=== PATIENT | female | born 1960 ===

== ENCOUNTER → 2020-10-30 | Outpatient (CLI) | payer BC ==
[~2020-10-30] MED LIST: CARI250T PO; CELE200C PO; CHOL5000 PO; DEXL30CA2 PO; ESCI20TA10 PO; MORP-52 PO; OMEG1CAP23 PO; OXYC-302 PO; OXYC10TA6 PO; TURM500C4 PO; VITA1CAP PO
== END | disposition home or self-care (01) ==
LOC: STAR 13:12
PROVIDERS: ATTEND Neurological Surgery
DX: Z20.822 Contact with and (suspected) exposure to COVID-19 (principal)
CPT/HCPCS: U0003; U0005

== ENCOUNTER 2020-11-03 05:41 | Inpatient (IN) | payer BC, OTHER ==
[~2020-11-03] VITALS: Ht 167.6 cm; Wt 100.1 kg
[2020-11-03 06:04] VITALS: BP 114/74
[2020-11-03] MEDS ORDERED: CHLORHEXIDINE 15 ML UDC ONE (06:10)
[2020-11-03] MEDS ORDERED: BUPIVACAINE/PF 0.5% ONE (06:17)
[2020-11-03] MEDS ORDERED: EPINEPHRINE 1 MG/ML, 1ML ONE (06:17)
[2020-11-03] MEDS ORDERED: VANCOMYCIN 1,000 MG ONE (06:17)
[2020-11-03] MEDS ORDERED: BACITRACIN 50,000 UNIT ONE (06:18)
[2020-11-03] MEDS ORDERED: CHLORHEXIDINE 15 ML UDC PO ONE (06:30)
[2020-11-03] MEDS ORDERED: LACTATED RINGERS 1,000 ML IV SCH (06:30)
[2020-11-03] MEDS ORDERED: MIDAZOLAM 1 MG/ML, 2ML ONE (06:32)
[2020-11-03] MEDS ORDERED: FENTANYL PF 100 MCG/2ML ONE ×3 (06:32→09:08)
[2020-11-03] MEDS ORDERED: DEXAMETHASONE 4 MG/ML, 1ML ONE (06:36)
[2020-11-03] MEDS ORDERED: ONDANSETRON 2MG/ML, 2ML ONE (06:36)
[2020-11-03] MEDS ORDERED: SUCCINYLCHOLINE 20 MG/ML, 10ML ONE (06:36)
[2020-11-03] MEDS ORDERED: CEFAZOLIN 1,000 MG ONE (06:36)
[2020-11-03] MEDS ORDERED: NEOSTIGMINE 1 MG/ML, 10ML ONE (06:36)
[2020-11-03] MEDS ORDERED: PROPOFOL 50 ML ONE (06:36)
[2020-11-03] MEDS ORDERED: PROPOFOL 10 MG/ML, 20ML ONE (06:36)
[2020-11-03] MEDS ORDERED: GLYCOPYRROLATE 0.2MG/1ML, 5ML ONE (06:36)
[2020-11-03] MEDS ORDERED: ROCURONIUM 10MG/ML,5ML ONE (06:36)
[2020-11-03] MEDS ORDERED: LIDOCAINE 1%, 20ML ONE (06:56)
[2020-11-03] MEDS ORDERED: EPHEDRINE 50 MG/ML, 1ML ONE (06:56)
[2020-11-03] MEDS ORDERED: PHENYLEPHRINE 10 MG/ML ONE (06:56)
[2020-11-03] MEDS: FENTANYL PF 100 MCG/2ML IV PRN ×3 (08:35→09:43)
[2020-11-03] MEDS ORDERED: OXYcodone 5 MG/5 ML ORAL.SOL UDC ONE (08:53)
[2020-11-03] MEDS ORDERED: MEPERIDINE/PF 25MG/0.5ML IVPush PRN (09:00)
[2020-11-03] MEDS ORDERED: BISACODYL 10 MG SUPP PR PRN (09:00)
[2020-11-03] MEDS ORDERED: DIPHENHYDRAMINE 50 MG/ML, 1ML IM PRN (09:00)
[2020-11-03] MEDS ORDERED: SENNA/DOCUSATE TABLET PO PRN (09:00)
[2020-11-03] MEDS ORDERED: METHOCARBAMOL 1,000 MG in DEXTROSE 5% 100 ML IV PRN (09:00)
[2020-11-03] MEDS ORDERED: OXYcodone/APAP 5/325MG TABLET PO PRN (09:00)
[2020-11-03] MEDS ORDERED: OXYcodone 5 MG/5 ML ORAL.SOL UDC PO PRN (09:00)
[2020-11-03] MEDS ORDERED: MAGNESIUM HYDROXIDE 8%, 30ML UDC PO PRN (09:00)
[2020-11-03] MEDS ORDERED: HYDROcodone/APAP 5/325 TABLET PO PRN (09:00)
[2020-11-03] MEDS ORDERED: ONDANSETRON 2MG/ML, 2ML IVPush PRN ×2 (09:00)
[2020-11-03] MEDS ORDERED: PROMETHAZINE 25 MG/ML, 1ML IM PRN (09:00)
[2020-11-03] MEDS ORDERED: PROMETHAZINE 25 MG/ML, 1ML IVPush PRN (09:00)
[2020-11-03] MEDS ORDERED: DIPHENHYDRAMINE 50 MG/ML, 1ML IVPush PRN (09:00)
[2020-11-03] MEDS ORDERED: HYDROcodone/APAP 7.5-325MG/15ML UDC PO PRN (09:00)
[2020-11-03] MEDS ORDERED: HYDROmorphone 1 MG/ML, 1ML INJ IVPush PRN (09:00)
[2020-11-03] MEDS ORDERED: METHOCARBAMOL 1,000 MG in DEXTROSE 5% 100 ML IV ONE (09:00)
[2020-11-03] MEDS ORDERED: KETOROLAC 30 MG/1 ML IVPush PRN (09:00)
[2020-11-03] MEDS ORDERED: LABETALOL 5MG/ML, 20ML IVPush PRN (09:00)
[2020-11-03] MEDS ORDERED: DIPHENHYDRAMINE 50 MG CAPSULE PO PRN (09:00)
[2020-11-03] MEDS ORDERED: PHARMACY MAY ADJ FOR RENAL FX MC PRN (09:00)
[2020-11-03 10:05] VITALS: BP 115/74
[2020-11-03] MEDS: D5%-0.9% NACL+KCL 20MEQ 1,000 ML IV SCH ×2 (12:07→20:30)
[2020-11-03] MEDS: SODIUM CHLORIDE FLUSH 10ML SYR IVF SCH ×2 (12:07→20:30)
[2020-11-03] MEDS: ESCITALOPRAM 10MG TABLET PO SCH (12:27)
[2020-11-03] MEDS: DEXLANSOPRAZOLE 30 MG PO SCH (12:27)
[2020-11-03] MEDS: OXYcodone IR 5MG TABLET PO PRN ×3 (12:27→20:34)
[2020-11-03 14:00] VITALS: BP 123/53
[2020-11-03] MEDS: CEFAZOLIN PMX 1GM/50ML 50 ML IVPB SCH ×2 (14:03→22:32)
[2020-11-03] MEDS: morphine SULFATE 10 MG/ML, 1ML IVPush PRN ×2 (14:03→18:32)
[2020-11-03] MEDS: METHOCARBAMOL 750 MG TABLET PO PRN (16:30)
[2020-11-03 18:26] VITALS: BP 131/78
[2020-11-04 00:05] VITALS: BP 105/66
[2020-11-04] MEDS: OXYcodone IR 5MG TABLET PO PRN ×4 (00:27→12:41)
[2020-11-04 03:29] VITALS: BP 109/66
[2020-11-04] MEDS: METHOCARBAMOL 750 MG TABLET PO PRN (05:17)
[2020-11-04] MEDS: D5%-0.9% NACL+KCL 20MEQ 1,000 ML IV SCH (05:49)
[2020-11-04] MEDS: morphine SULFATE 10 MG/ML, 1ML IVPush PRN ×2 (06:19→11:19)
[2020-11-04 08:06] VITALS: BP 98/62
[2020-11-04] MEDS ORDERED: METH-640 PO (08:13)
[2020-11-04] MEDS ORDERED: OXYC5TAB98 PO (08:13)
[2020-11-04] MEDS ORDERED: KETOROLAC 30 MG/1 ML ONE (08:33)
[2020-11-04] MEDS: KETOROLAC 30 MG/1 ML IVPush SCH ×2 (08:36→13:41)
[2020-11-04] MEDS: ESCITALOPRAM 10MG TABLET PO SCH (08:36)
[2020-11-04] MEDS: DEXLANSOPRAZOLE 30 MG PO SCH (09:00)
[2020-11-04] MEDS: SODIUM CHLORIDE FLUSH 10ML SYR IVF SCH (09:00)
== END 2020-11-04 14:24 | disposition home or self-care (01) | DRG 472 ==
LOC: ORIP 05:41 → 4NE 10:04 → DCLOUNGE 11-04 14:19
PROVIDERS: ADMIT Neurological Surgery; ATTEND Neurological Surgery
PROC: 01N10ZZ Release Cervical Nerve, Open Approach (ICD-10-PCS; 2020-11-03)
PROC: 4A11X4G Monitoring of Peripheral Nervous Electrical Activity, Intraoperative, External Approach (ICD-10-PCS; 2020-11-03)
PROC: 0RG1071 Fusion of Cervical Vertebral Joint with Autologous Tissue Substitute, Posterior Approach, Posterior Column, Open Approach (ICD-10-PCS; principal; 2020-11-03 07:00)
DX: M51.16 Intervertebral disc disorders with radiculopathy, lumbar region (principal); M96.0 Pseudarthrosis after fusion or arthrodesis; M48.02 Spinal stenosis, cervical region; M50.120 Mid-cervical disc disorder, unspecified level; M50.30 Other cervical disc degeneration, unspecified cervical region; M53.2X2 Spinal instabilities, cervical region; Z91.040 Latex allergy status
CPT/HCPCS: 72040; J3490; S0020; 95938; 95941; C1713; G0378; J0171; J0690; J1100; J1885; J2250; J2405; J2704; J2710; J3010; J3370; C1762; J0330; J2270; J2370; J2800; J3480; J7120

== ENCOUNTER 2021-01-08 05:42 | Day surgery (SDC) | payer BC, OTHER ==
[~2021-01-08] VITALS: Ht 167.6 cm; Wt 88.6 kg
[~2021-01-08 05:42] MED LIST changes: +METH-640 PO; +OXYC5TAB98 PO
[2021-01-08 06:07] VITALS: BP 112/68
[2021-01-08] MEDS ORDERED: METH-640 PO (06:12)
[2021-01-08] MEDS ORDERED: OXYC1TAB17 PO (06:12)
[2021-01-08] MEDS ORDERED: EPINEPHRINE 1 MG/ML, 1ML ONE (06:28)
[2021-01-08] MEDS ORDERED: VANCOMYCIN 1,000 MG ONE (06:28)
[2021-01-08] MEDS ORDERED: THROMBIN 5,000 UNIT VIAL TP ONE (06:28)
[2021-01-08] MEDS ORDERED: BUPIVACAINE/PF 0.5% ONE (06:28)
[2021-01-08] MEDS ORDERED: CHLORHEXIDINE 15 ML UDC PO ONE (06:30)
[2021-01-08] MEDS ORDERED: LACTATED RINGERS 1,000 ML IV SCH (06:30)
[2021-01-08] MEDS ORDERED: MIDAZOLAM 1 MG/ML, 2ML ONE (06:39)
[2021-01-08] MEDS ORDERED: FENTANYL PF 100 MCG/2ML ONE ×2 (06:39→07:51)
[2021-01-08] MEDS ORDERED: GENTAMICIN 80 MG/2 ML ONE (07:16)
[2021-01-08] MEDS ORDERED: CEFAZOLIN 1,000 MG ONE ×2 (07:16→07:21)
[2021-01-08] MEDS ORDERED: SUCCINYLCHOLINE 20 MG/ML, 10ML ONE (07:21)
[2021-01-08] MEDS ORDERED: PROPOFOL 10 MG/ML, 20ML ONE (07:21)
[2021-01-08] MEDS ORDERED: ONDANSETRON 2MG/ML, 2ML ONE (07:21)
[2021-01-08] MEDS ORDERED: ROCURONIUM 10MG/ML,5ML ONE (07:21)
[2021-01-08] MEDS ORDERED: DEXAMETHASONE 4 MG/ML, 1ML ONE (07:21)
[2021-01-08] MEDS ORDERED: MIDAZOLAM 1 MG/ML, 2ML IV PRN (07:30)
[2021-01-08] MEDS ORDERED: LABETALOL 5MG/ML, 20ML IV PRN (07:30)
[2021-01-08] MEDS ORDERED: MEPERIDINE/PF 25MG/0.5ML IVPush PRN (07:30)
[2021-01-08] MEDS ORDERED: PROMETHAZINE 25 MG/ML, 1ML IVPush PRN (07:30)
[2021-01-08] MEDS ORDERED: HYDROmorphone 1 MG/ML, 1ML INJ IVPush PRN (07:30)
[2021-01-08] MEDS ORDERED: FENTANYL PF 100 MCG/2ML IV PRN (07:30)
[2021-01-08] MEDS ORDERED: ALBUTEROL SULFATE 2.5 MG/3 ML NPPB PRN (07:30)
[2021-01-08] MEDS ORDERED: ACETAMINOPHEN 325 MG TABLET PO PRN (07:30)
[2021-01-08] MEDS ORDERED: OXYcodone 5 MG/5 ML ORAL.SOL UDC PO PRN (07:30)
== END 2021-01-08 09:10 | disposition home or self-care (01) ==
LOC: OUT 05:42
PROVIDERS: ATTEND Neurological Surgery
DX: T81.32XA Disruption of internal operation (surgical) wound, not elsewhere classified, initial encounter (principal); J45.909 Unspecified asthma, uncomplicated; K21.9 Gastro-esophageal reflux disease without esophagitis; G43.909 Migraine, unspecified, not intractable, without status migrainosus; M19.90 Unspecified osteoarthritis, unspecified site; Z79.891 Long term (current) use of opiate analgesic; Z79.899 Other long term (current) drug therapy; Z87.891 Personal history of nicotine dependence; Z91.040 Latex allergy status; Y83.8 Other surgical procedures as the cause of abnormal reaction of the patient, or of later complication, without mention of misadventure at the time of the procedure
CPT/HCPCS: 13160; J0171; J0330; J0690; J1100; J2250; J2405; J2704; J3010; J3370; J7120; J1580